=== PATIENT | male | born 1970 | race Native Hawaiian/Other Pacific Islander ===

== ENCOUNTER 2017-06-08 15:56 | Emergency (ER) | payer OTHER ==
[~2017-06-08] VITALS: Ht 180.3 cm; Wt 86.2 kg
[2017-06-08 16:19] LABS: PLATELET COUNT 218 K/uL (142-355)
[2017-06-08 16:40] LABS: POTASSIUM 3.4 mmol/L (3.6-5.2)
[2017-06-08 18:04] VITALS: BP 145/110; TEMP 97.8
== END 2017-06-08 18:05 | disposition home or self-care (01) ==
LOC: ED 15:56
DX: I10 Essential (primary) hypertension (principal); R80.8 Other proteinuria; R82.71 Bacteriuria; R74.0 Nonspecific elevation of levels of transaminase and lactic acid dehydrogenase [LDH]; R68.89 Other general symptoms and signs; R00.0 Tachycardia, unspecified
CPT/HCPCS: 36415; 80053; 81000; 85027; 93005; 99283

== ENCOUNTER 2017-06-09 21:49 | Emergency (ER) | payer OTHER ==
[~2017-06-09] VITALS: Ht 180.3 cm; Wt 86.2 kg
[2017-06-09 22:06] VITALS: BP 107/86; TEMP 98.3
== END 2017-06-09 22:10 | disposition home or self-care (01) ==
LOC: ED 21:49
DX: R39.198 Other difficulties with micturition (principal)
CPT/HCPCS: 99281